=== PATIENT | male | born 1965 | race Caucasian/White ===

== ENCOUNTER 2025-05-15 16:08 | Emergency (ER) | payer BC, SELFPAY ==
[2025-05-15 16:40] VITALS: BP 125/77; PULSE 106; RESP 17; TEMP 36.8; O2SAT 95; BMI 31.7
--- NOTE | 2025-05-15 16:47 | PD.EDRME ---
Rapid Medical Screening Exam RME Arrival date/time: 05/15/25 16:08 Chief Complaint: Back Pain/Injury Vital signs: Vital Signs Temperature 98.3 F 05/15/25 16:40 Pulse Rate 106 H 05/15/25 16:40 Respiratory Rate 17 05/15/25 16:40 Blood Pressure 125/77 05/15/25 16:40 Pulse Oximetry (%) 95 05/15/25 16:40 Oxygen Delivery Method Room Air 05/15/25 16:40 RME Narrative: 59-year-old male here with about 10-hour history of severe left flank pain. Exam: He appears to be in severe pain. No localized abdominal tenderness on exam. Clinical Impression: Severe left flank pain.
--- NOTE | 2025-05-15 16:50 | XR_ITS ---
Examination: CT abdomen and pelvis without contrast. Coronal 3-D reconstructions. Sagittal 2-D reconstructions. Date and time of exam: May 15, 2025, 1756 hours Indications: Onset left flank pain today CTDI: vol (mGy): 10.3 DLP: (mGycm): 658 Technique: Axial images of the abdomen have been obtained, 3 mm slice thickness Intravenous contrast material has not been administered. Low dose protocols were performed. One or more of the following dose reduction techniques were used; automated exposure control, adjustment of the mA and/or KV according to patient size, use of iterative reconstruction technique. Findings: Fatty infiltration throughout the liver no focal liver or splenic lesions No gallstones No pancreatic or adrenal mass Mild renal scar formation No renal or ureteral calculi, no hydronephrosis Minimal perinephric stranding Normal appendix Artifact from the patient's lumbar transpedicular fixation screws Scattered colonic diverticulosis, no diverticulitis Mild urinary bladder wall thickening up to 5 mm Mild prostatomegaly Transpedicular lumbar fusion L4-S1 IMPRESSION: Mild renal scar formation No renal or ureteral calculi, no hydronephrosis Mild perinephric stranding consider urinary tract infection Normal appendix Cystitis pattern
[2025-05-15 17:17] LABS: Collection Type, Urine Clean Catch; Squamous Epithelial Cell,Urine 0 /hpf (0-5)
[2025-05-15 17:30] LABS: Bilirubin,Urine Negative (Negative); Blood,Urine Trace (Negative); Clarity,Urine Clear (Clear/Hazy); Color,Urine Lt-Yellow (Lt Yel-Yel); Culture Indicated,Urine Not Indicated; Glucose, Urine Negative (Negative); Ketones,Urine Negative (Negative); Leukocyte Esterase,Urine Negative (Negative); Nitrite,Urine Negative (Negative); PH,Urine 6.0 (5.0-7.0); Protein,Urine Negative (Neg - Trace); RBC,Urine 3 /hpf (0-3); Specific Gravity,Urine 1.011 (1.001-1.035); Urobilinogen,Urine Negative mg/dL (0.0-1.0); WBC,Urine 1 /hpf (0-5)
[2025-05-15 17:46] LABS: Basophils # (Auto) 0.1 Thou/mm3 (0.0-0.2); Basophils % (Auto) 1 % (0-2.5); Eosinophils # (Auto) 0.1 Thou/mm3 (0.0-0.5); Eosinophils % (Auto) 1 % (0-10); Hematocrit 45.9 % (41.0-53.0); Hemoglobin 15.2 g/dL (13.5-16.0); Immature Granulocytes Auto 0.03 Thou/mm3 (0.00-0.00); Lymphocytes # (Auto) 1.3 Thou/mm3 (1.0-4.8); Lymphocytes % (Auto) 14 % (10-50); Mean Corpuscular HGB Conc 33.1 g/dl (31.0-37.0); Mean Corpuscular Hemoglobin 29.2 pg (25.0-35.0); Mean Corpuscular Volume 88 fL (80-100); Monocytes # (Auto) 0.9 Thou/mm3 (0.0-0.8); Monocytes % (Auto) 10 % (0-12); Neutrophils # (Auto) 6.4 Thou/mm3 (1.8-7.7); Neutrophils % (Auto) 73 % (37-80); Nucleated Red Blood Cell # 0.00 Thou/mm3 (0.00-0.00); Nucleated Red Blood Cell % 0 /100 WBC (0); Platelet Count 215 Thou/mm3 (140-440); RDW Standard Deviation 45.3 fL (35.1-43.9); Red Blood Count 5.21 Miln/mm3 (4.50-5.90); White Blood Count 8.8 Thou/mm3 (3.8-10.6)
[2025-05-15 18:02] LABS: Alanine Aminotransferase 25 U/L (10-49); Albumin, Serum 4.9 gm/dL (3.4-4.8); Albumin/Globulin Ratio 2.2 (1.2-2.2); Alkaline Phosphatase 105 U/L (46-116); Amylase 33 U/L (30-118); Anion Gap 10 (7-16); Aspartate Amino Transferase 19 U/L (0-34); BUN/Creatinine Ratio 8 Ratio (12-20); Bilirubin,Direct 0.3 mg/dL (0.0-0.3); Bilirubin,Total 0.8 mg/dL (0.3-1.2); Blood Urea Nitrogen 9 mg/dL (9-23); Calcium 9.1 mg/dL (8.3-10.6); Calcium (Corrected) 9.1 mg/dL (8.5-10.1); Carbon Dioxide 25.4 mMol/L (20.0-31.0); Chloride 109 mMol/L (98-107); Creatinine (Component) 1.2 mg/dL (0.6-1.3); Estimated Creatinine Clearance 84.8 mL/min (>60); Globulin 2.2 gm/dL (2.3-3.5); Glucose 113 mg/dL (74-106); Lipase 20 U/L (12-53); Magnesium 1.8 mg/dL (1.6-2.6); Osmolality,Calculated 286 (275-295); Potassium 3.7 mMol/L (3.4-5.1); Sodium 144 mMol/L (136-145); Total Protein 7.1 gm/dL (5.7-8.2); eGFR > 60 See Note
[2025-05-15] MEDS: SODIUM CHLORIDE 0.9% 1000 ML 1,000 ML 999 ML IV (18:12)
[2025-05-15] MEDS: ONDANSETRON INJ 2 MG/ML INJ 2 ML 4 MG IVP (18:33)
[2025-05-15] MEDS: KETOROLAC INJ 30 MG/ML VIAL IVP (18:34)
[2025-05-15] MEDS: MethylPREDNISolone SOD SUCC 62.5 MG/ML 2ML VIAL 125 MG IVP (18:34)
[2025-05-15 19:12] VITALS: BP 120/76; PULSE 81; RESP 18; TEMP 36.9; O2SAT 95
--- NOTE | 2025-05-15 19:30 | EDNOTE_ITS ---
ED Back Injury Pain RME/HPI General Chief Complaint: Back Pain/Injury Stated Complaint: LEFT FLANK PAIN Time Seen by Provider: 05/15/25 18:13 Arrival date/time: 05/15/25 16:08 RME / HPI RME / HPI Narrative: 59-year-old male here with about 10-hour history of severe left flank pain. DR. STUBBS MAIN ED EVALUATION: Patient presenting with sudden left lower lumbar sharp pain onset at 7 AM constant throughout the day without radiation to the groin, does however report radiation to the left upper flank. Denies any urinary frequency, urgency, or dysuria. No hematuria, fever, chills, vomiting, or diarrhea. Pain tends to worsen with rotation of the torso in rightward direction. Reports moderate level of strenuous activity. No sacral paresthesias or radiculopathy. No recent trauma. PMH: HTN, Lumbar stenosis PSH: Unremarkable Allergies: IBU (sensitivity), Celecoxib, Meloxicam Social: No tobacco, alcohol, or illicit drug abuse Exam: He appears to be in severe pain. No localized abdominal tenderness on exam. Impression: Severe left flank pain. Related Data Home Medications ?Medication ?Instructions ?Recorded ?Confirmed venlafaxine 150 mg 150 mg PO QDAY ##0 06/09/15 11/04/17 capsule,extended release 24 hr (Effexor XR) Propranolol Hcl (Inderal) 10 mg PO BID ##60 01/12/16 0 11/04/17 gabapentin 300 mg capsule 300 mg PO TID ##90 01/12/16 11/04/17 Previous Rx's ?Medication ?Instructions ?Recorded tramadol 50 mg tablet 50 mg PO Q6H #30 tabs cyclobenzaprine 10 mg tablet 10 mg PO TID PRN muscle s pasm #10 07/30/19 tabs ibuprofen 800 mg tablet 800 mg PO Q6H PRN pain #14 t abs 07/30/19 cyclobenzaprine 5 mg tablet 5 mg PO TID PRN muscle spa sm #12 08/19/19 tabs Allergies Allergy/AdvReac Type Severity Reaction Status Date / Time celecoxib Allergy Severe LETHARGY Verified 05/15/25 16:11 ibuprofen Allergy Severe Gastrointestinal Verified 05/15/25 16:11 Upset meloxicam Allergy Severe Rash Verified 05/15/25 16:11 Review of Systems Review of Systems Systems Reviewed: All systems reviewed, normal except as documented Past Medical History Past Medical History CARDIAC: Positive Hypertension Social History SMOKING STATUS: Never smoker ED Exam Narrative Physical exam: GEN. APPEARANCE: The patient is alert awake oriented X-3 under no distress, lying down comfortably, does not look ill/toxic. Patient has good eye contact. Patient is cooperative. Reports mild improvement after having receieved IV fluids, steroids, and IV NSAID's. VITALS: All vitals were reviewed and the pulse ox is 95%, which is normal according to my interpretation HEENT: Normocephalic, atraumatic and nontender. Pupils are equal and reactive. Oral mucosa is moist. NECK: Supple, nontender, no meningismus, no JVD. There is no thyromegaly and no lymphadenopathy. CHEST: Nontender on palpation no deformity and no crepitus. CARDIOVASCULAR: Heart regular rhythm, no murmur or gallop rub or extra beats. LUNGS: Clear to auscultation bilaterally with symmetrical chest rise. No laboring tachypnea or wheezing. No intercostal subcostal retraction. No rales and no rhonchi. ABDOMEN: Soft, flat, minimal left flank tenderness, no guarding or rebound tenderness. There are no abnormal masses palpated. No pulsatile masses or bruits. Active and normal bowel sounds. EXTREMITIES: Normal inspection and palpation. No edema. No cyanosis. Patient is able to move all 4 extremities well SKIN: Warm and dry, no rashes noted. MUSCULOSKELETAL: Back: without midline spinal tenderness, no paralumbar spasm or tenderness, minimal left flank tenderness, noted reported pain with right rotation of torso NEURO: Cranial nerves II through XII grossly intact. There are no focal neurologic deficits noted. GCS is 15 PSYCHIATRIC: Patient is in normal mood and affect, cooperative. LYMPHATICS: No major lymphadenopathy noted. Course Quality Measures none Orders Category Date Time Status Saline [Insert IV] NOW Care 05/15/25 16:[address] abdomen pelvis wo con Stat Exams 05/15/25 16:50 Completed Amylase Stat Lab 05/15/25 17:32 Completed Bilirubin,Direct Stat Lab 05/15/25 17:32 Completed CBC Stat Lab 05/15/25 17:32 Completed CMP [Comprehensive Metabolic Panel] Stat Lab 05/15/25 17:32 Completed Lipase Stat Lab 05/15/25 17:32 Completed Magnesium Stat Lab 05/15/25 17:32 Completed UA, C/S IF [Urinalysis, C/S if Indicated] Stat Lab 05/15/25 17:01 Completed Ketorolac Inj [Toradol Inj] Med 05/15/25 16:49 Discontinued 30 mg IVP X1 ONE MethylPREDNISolone.* [SoluMEDROL Inj] Med 05/15/25 16:49 Discontinued 125 mg IVP X1 ONE Ondansetron Inj [Zofran Inj] Med 05/15/25 16:49 Discontinued 4 mg IVP X1 ONE Sodium Chloride 0.9% 1000 ml [Ns] 1,000 ml Med 05/15/25 16:49 Discontinued IV 999 mls/hr Vital Signs Vital signs: Vital Signs Temperature 98.3 F 05/15/25 16:40 Pulse Rate 106 H 05/15/25 16:40 Respiratory Rate 17 05/15/25 16:40 Blood Pressure 125/77 05/15/25 16:40 Pulse Oximetry (%) 95 05/15/25 16:40 Oxygen Delivery Method Room Air 05/15/25 16:40 Back Pain / Injury MDM Narrative MDM Narrative:: Scribe Attestation: Debra Donis am scribing for and in the presence of Dr. Giron. Provider Notation: Although this document has been carefully reviewed, there may still be some phonetic and other typographical errors. These errors are purely grammatical due to imperfections in the software program and should not be construed in any way to compromise the substance of the patient's medical care during this visit. Patient presenting with sudden left lower lumbar sharp pain onset at 7 AM constant throughout the day without radiation to the groin, does however report radiation to the left upper flank. Denies any urinary frequency, urgency, or dysuria. No hematuria, fever, chills, vomiting, or diarrhea. Pain tends to worsen with rotation of the torso in rightward direction. Please see PE findin gs. Laboratory markers, including CBC and serum chemistries, demonstrated WBC of 8.8, H&H of 15.2/45, and normal platelet count, no left shift or bandemia. UA without infection. Patient received the above noted therapy and was referred to CT which failed to demonstrate urolithiasis, but did demonstrate evidence of cystitis with slight bladder wall thickening and perinephric stranding. Imperic ABX and will be discharged to home on PO ABX regimen. Additionally, will include muscle relaxant and analgesics as cause of patient's pain may be multifactorial and involve musculoskeletal system. Final diagnoses include ascending UTI and lumbar back pain. Disposition will include Ciprofloxacin, Flexiril, and Tylenol with codeine. Recommend referrel to PMD for cosnideration of urological evaluation. Patient data External records reviewed:: [facility] previous records (Reviewed prior ED records from 07/16/21. Patient was seen for Lumbar strain.) Clinical information provided by:: patient Social determinants that could affect healthcare access:: none Patient has the following chronic illnesses:: HTN How is presenting disease/condition affected by chronic disease/condition?: exacerbated by Evaluation data The following diagnostics were reviewed and interpreted by me:: lab results and radiology exam(s) Lab and/or radiology exams considered but not ordered:: None Interpretation Summary: RADIOLOGY Abdomen/Pelvis CT: Findings: Fatty infiltration throughout the liver no focal liver or splenic lesions No gallstones No pancreatic or adrenal mass Mild renal scar formation No renal or ureteral calculi, no hydronephrosis Minimal perinephric stranding Normal appendix Artifact from the patient's lumbar transpedicular fixation screws Scattered colonic diverticulosis, no diverticulitis Mild urinary bladder wall thickening up to 5 mm Mild prostatomegaly Transpedicular lumbar fusion L4-S1 IMPRESSION: Mild renal scar formation No renal or ureteral calculi, no hydronephrosis Mild perinephric stranding consider urinary tract infection Normal appendix Cystitis pattern Medications / Prescriptions Medications or Prescriptions considered but not ordered:: None Medication administrations:: Medication Administration History Discontinued Medications Sodium Chloride (Ns) 1,000 mls @ 999 mls/hr IV .Q1H1M ONE Stop: 05/15/25 17:49 Last Infusion: 05/15/25 19:12 Dose: Infused Documented By: Admin: 05/15/25 18:12 Dose: 999 mls/hr Documented By: VARINDER Ketorolac Tromethamine (Ketorolac Inj 30 Mg/Ml Vial) 30 mg IVP X1 ONE Stop: 05/15/25 16:50 Last Admin: 05/15/25 18:34 Dose: 30 mg Documented By: BAL Methylprednisolone Sodium Succinate (Methylprednisolone Sod Succ 62.5 Mg/Ml 2ml Vial) 125 mg IVP X1 ONE Stop: 05/15/25 16:50 Last Admin: 05/15/25 18:34 Dose: 125 mg Documented By: BAL Ondansetron HCl (Ondansetron Inj 2 Mg/Ml Inj 2 Ml) 4 mg IVP X1 ONE; Protocol Stop: 05/15/25 16:50 Last Admin: 05/15/25 18:33 Dose: 4 mg Documented By: BAL See above if any Consultations Consultation(s) initiated? (list below): No Diagnosis Differential diagnosis back pain/injury: lumbar radiculopathy, renal colic, pyelonephritis, discitis and other (Cystitis, UTI) Most likely diagnosis given after review of the tests above:: Lumbar back pain, Cystitis Admission Indicated Admission indicated?: not indicated Explain why admission is indicated or not indicated:: Patient does not meet admission criteria Admission Request Was there a request for admission?: No Disposition Plan Disposition Plan: Discharge Discharge Attestation Discharge Attestation: The patient and all family members were given an opportunity to ask questions and understood the discharge instructions. Discharge instructions specifically effects, indications for sooner follow up or return to the emergency department, and the expected course of current diagnosis. Patient condition: Stable Discharge Plan Plan Patient Disposition: HOME (Self Care) Prescriptions/Referrals Prescriptions/Med Rec: No Action venlafaxine [Effexor XR] 150 MG capsule,extended release 24hr 150 mg PO QDAY Qty: 0 gabapentin 300 MG capsule 300 mg PO TID Qty: 90 Propranolol Hcl (Inderal) 10 MG tablet 10 mg PO BID Qty: 60 tramadol 50 mg tablet 50 mg PO Q6H Qty: 30 0RF cyclobenzaprine 5 mg tablet 5 mg PO TID PRN (Reason: muscle spasm) Qty: 12 0RF ibuprofen 800 mg tablet 800 mg PO Q6H PRN (Reason: pain) Qty: 14 0RF cyclobenzaprine 10 mg tablet 10 mg PO TID PRN (Reason: muscle spasm) Qty: 10 0RF Referrals: No Primary/Family,Physician [Primary Care Provider] - In 1 week Problem List Clinical Impression: Lumbar back pain, Cystitis Patient/Caregiver Discharge Instructions Print Language: Bel[place]ian Stand Alone Forms: Gwen Award Info., Patient Portal Info Letter
[2025-05-15] MEDS: cefTRIAXone/D5w 1gm IV premix 1 GM/50 ML BAG IV (20:21)
== END 2025-05-15 21:07 | disposition home or self-care (01) ==
PROVIDERS: Emergency Medicine; Emergency Provider Emergency Medicine
DX: N30.90 Cystitis, unspecified without hematuria (principal); M54.50 Low back pain, unspecified; N28.89 Other specified disorders of kidney and ureter
CPT/HCPCS: 36415; 74176; 80053; 81001; 82150; 82248; 83690; 83735; 85025; 96361; 96365; 96375; 99283; J0696; J1885; J2405; J2919; J7030